=== PATIENT | female | born 1990 | race African-American/Black ===

== ENCOUNTER 2016-08-15 15:13 | Emergency (ER) | payer MEDICAID ==
[2016-08-15 15:28] VITALS: BMI 31.1
--- NOTE | 2016-08-15 16:44 | EDPRACDOC ---
- General Information Chief Complaint: Chest Pain Stated Complaint: CHEST PAIN Time Seen by Provider: 08/15/16 16:35 Information Source: Patient Mode of Arrival: Car Home Medications: Home Medications Hydrocodone Bit/Acetaminophen [Hydrocodon-Acetaminophen 5-325] 1 tab PO Q6 PRN # 15 tab 12/07/15 Sulfamethoxazole/Trimethoprim [Bactrim Ds Tablet] 1 tab PO BID #20 tab 12/07/15 HydrOXYzine Pamoate (Anxiety) [Vistaril] 25 mg PO Q4-6H #20 cap 08/15/16 Ketoprofen 75 mg PO TID #20 capsule 08/15/16 Allergies/Adverse Reactions: Allergies Allergy/AdvReac Type Severity Reaction Status Date / Time No Known Allergies Allergy Verified 08/15/16 15:25 - History of Present Illness Onset: this am HPI: PT C/O INTERMITTENT SHARP STABBING TINGLING CHEST PAIN THAT IS INTERMITTTENT WITH NUMBNESS AND TINGLING IN FINGER WITH PALPITATIONS WHEN IT STARTS. PT APPEARS NON TOXIC AT THIS TIME SITTING UP ON SIDE OF BED. Chest Pain Location: Reports: Right Chest Pain Radiation: Reports: None Symptoms Occur: Reports: Gradually Cardiac Risk Factors: Reports: None Cardiac History of: Reports: None PE Risk Factors: Reports: Estrogen Use (BCPS) Medications within 24 Hours: Reports: None Prehospital Care: Reports: None Pain Came On: Reports: Suddenly Pain Status: Resolved Pain Description: Reports: Sharp, Stabbing Pain Severity: Mild Pain Worsens With: Reports: Nothing Pain Improves With: Reports: Nothing Associated Signs and Symptoms: Reports: Other (TINGLING IN FINGERS) ED Past Medical History - History Reviewed Yes Nurses notes reviewed and agree except as marked Travel Outside of [place] in the Last 3 Months?: No No Past Medical History: Yes Patient has no past medical history - Patient Medical History Psychological History: Denies: Substance Use Disorder Systemic History: Denies: Cancer, Anemia, Lupus - Family Medical History Reports: Hypertension (MOM). Denies: Diabetes, Cancer, Stroke, Cardiac Disorders - Social Medical History Smoking Status: Never smoker Social History: Denies: Amphetamine Use, Barbiturate Use, Benzodiazipine Use, Cocaine Use, Heroin Use, Marijuana Use, Methadone Use, MDMA (Ecstasy) Use, Substance Use Disorder ETOH: None Substance Abuse: None Lives With: Other Lives In: Home EDM Review of Systems - Review of Systems ROS Negative Except as Marked: Yes All systems reviewed and were negative except as marked Constitutional: No Symptoms Reported. negative: Fever, Chills, Weakness, Fatigue, Loss of Appetite Eyes: No Symptoms Reported. negative: Redness, Blurred Vision, Double Vision, Discharge, Pain, Light Sensitive, Photophobia Ears: No Symptoms Reported. negative: Pain, Hearing Loss, Drainage, Ear Pulling Throat: No Symptoms Reported. negative: Pain, Swelling Nose: No Symptoms Reported. negative: Congestion, Bleeding, Discharge, Injection, Swelling, Deformity, Ecchymosis, Tender, Abrasion, Laceration Mouth: No Symptoms Reported. negative: Pain, Drooling Respiratory: No Symptoms Reported. negative: Cough, Brassy Cough, Barky Cough, Shortness of Breath, Wheezing, Hemoptysis Cardiovascular: Chest Pain. negative: Cyanosis, Edema, Orthopnea, Palpitations , PND, Syncope, Skin Mottling Gastrointestinal: No Symptoms Reported. negative: Pain, Constipation, Nausea, Vomiting, Diarrhea, Melena, Formula Intolerance Genitourinary: No Symptoms Reported. negative: Dysuria, Hematuria, Frequency, Discharge, Bleeding, Testicular Pain, Neurological: No Symptoms Reported. negative: Headache, Dizziness, Seizure, Numbness, Weakness, Speech Difficulty, Gait Difficulty Musculoskeletal: No Symptoms Reported. negative: Neck, Chestwall, Ribs, Back, Shoulder, Arm, Elbow, Forearm, Wrist, Hand, Pelvis, Hip, Femur, Knee, Leg, Ankle , Foot Integumentary: No Symptoms Reported. negative: Itching, Rash, Bruising, Wound Allergic/Immunologic: No Symptoms Reported. negative: Hives, Itching Hematologic: No Symptoms Reported. negative: Lymphadenopathy, Easy Bruising, Easy Bleeding Endocrine: No Symptoms Reported. negative: Weight Gain, Weight Loss Psychiatric: No Symptoms Reported. negative: Anxiety, Depression, Hallucinations, Insomnia, Suicidal - Physical Exam Constitutional: No apparent distress, Alert (Awake) Oriented to: Time, Person, Place Last recorded Vital Signs: Last Vital Signs Temp 98.7 F 08/15/16 15:26 Pulse 77 08/15/16 15:26 Resp 18 08/15/16 15:26 BP 118/64 08/15/16 15:26 Pulse Ox 99 08/15/16 15:26 Oxygen Pulse Oxygen Saturation 99 O2 Device Room Air Oxygen Flow Rate Fraction of Inspired Oxygen ( FIO2) - HEENT Head: Normal ( normocephalic) Eye Exam: Normal (PERRL, EOMI, Sclera white) Oropharynx: Normal (Pharynx:Moist without exudate,Gums-no swelling) Tympanic Membrane: Normal ENT EAC: Normal TMJ: Normal Nose: No Symptoms Reported (septum midline) Neck: Normal (FROM, trachea at midline) - Respiratory/Cardiovascular Respiratory: Normal - CTA (BBS clear to auscultation without adventitious sounds ) Cardiovascular: Normal (RRR without murmur, gallop or rub) - GI Auscultation: Normal (NABS) Palpation: Normal (Soft,No rebound or guarding, non distended) Tenderness: Non tender Arriaza's Sign: Negative - Bladder: Normal - Musculoskeletal Back: Normal (Non-Tender) Extremities: Normal (Normal tone, Pulses 2+ No cyanosis or edema, FROM) - Integumentary Skin: Normal, Warm, Dry Lymphatics: Normal (no adenopathy) - Neurologic Memory Impaired: Normal Motor Function: Normal (Normal tone, Pulses 2+ No cyanosis or edema, FROM) Cranial Nerve: Normal (CN II-X11 intact sensation, strength 5/5) Cerebellar: Normal Mood Description: Normal Perception: Normal ED Chest Pain Exam - Respiratory/Cardiovascular Respiratory: Normal - CTA Cardiovascular/Chest: Normal Radial Pulse: Normal Femoral Pulse: Normal Pedal Pulse: Normal Carotid Arteries: Normal Chest Palpation: Normal - Differential Diagnosis Chest wall pain, Costochondritis, Gastritis, Pleuritis, Pneumonia, Other ( ANXIETY) - Action Patient received Aspirin within last 24 hours?: No ASA given in the ED: No Patient received Beta Issa within last 24hrs: No - Results All Results Reviewed and Normal except as Highlighted below: Yes - EKG EKG #1 EKG Time: 15:30 -: Yes EKG interpreted by me Rate: bpm: 78 Henry: Normal Rhythm: NSR Block: None Hypertrophy: None ST: Normal - Diagnostic Imaging CXR Image interpreted by: Radiologist IMPRESSION: No active cardiopulmonary disease. Decision Time to Discharge: 17:54 - Departure Disposition: Home Condition: Stable Final Diagnosis: Anxiety Chest pain Qualifiers: Chest pain type: unspecified Qualified Code(s): R07.9 - Chest pain, unspecified Instructions: Chest Pain (ED), Chest Wall Pain Education/Counseling Given To: Patient Education/Counseling Given Regarding: Diagnosis, Treatment, Prognosis, Follow Up Referrals: Real Castorena MD [Primary Care Provider] - One Week Prescriptions: HydrOXYzine Pamoate (Anxiety) [Vistaril] 25 mg PO Q4-6H #20 cap Ketoprofen 75 mg PO TID #20 capsule
--- NOTE | 2016-08-15 17:01 | DIRPT ---
CLINICAL DATA: Left-sided chest pain. EXAM: CHEST 2 VIEW COMPARISON: Chest radiograph 10/21/2012. FINDINGS: The heart size and mediastinal contours are within normal limits. Both lungs are clear. The visualized skeletal structures are unremarkable. IMPRESSION: No active cardiopulmonary disease. Electronically Signed By: Javed Crook M.D. On: 08/15/2016 16:58
[2016-08-15 18:07] VITALS: BP 117/62; PULSE 78; TEMP 98.5
== END 2016-08-15 18:17 | disposition home or self-care (01) ==
LOC: ED 15:13 → EDMC 18:17
DX: F41.9 Anxiety disorder, unspecified (principal); R07.9 Chest pain, unspecified
CPT/HCPCS: 71020; 99282